=== PATIENT | male | born 1980 | race Caucasian/White ===

== ENCOUNTER 2020-12-13 09:49 | Outpatient (REF) | payer OTHER, SELFPAY ==
--- NOTE | ~2020-12-13 | XR_ITS ---
EXAMINATION: XR WRIST, LEFT CLINICAL INFORMATION: Ganglion left wrist. COMPARISON: None TECHNIQUE: Left wrist is imaged in 4 views. FINDINGS: Symptom marker directed towards the lateral wrist. The bony mineralization appears normal. There is no fracture, dislocation, or destructive process. The ulnar variance is neutral. There is no joint narrowing or erosive change or chondrocalcinosis. No soft tissue mass appreciated on plain film. XR/XR wrist LT min 3V IMPRESSION: Normal left wrist.
== END 2020-12-13 09:50 | disposition home or self-care (01) ==
LOC: HO.XRAY 09:49
PROVIDERS: Visit Provider Family Medicine
DX: M67.432 Ganglion, left wrist (principal)
CPT/HCPCS: 73110

== ENCOUNTER → 2021-05-22 10:36 | Outpatient (BNVA) | payer OTHER, SELFPAY | PROVIDERS: Visit Provider Urology | DX: N41.9 Inflammatory disease of prostate, unspecified (principal) | CPT/HCPCS: 99202 ==

== ENCOUNTER 2025-01-10 10:37 | Outpatient (REF) | payer OTHER, SELFPAY ==
--- NOTE | ~2025-01-10 | XR_ITS ---
EXAMINATION: XR SINUSES CLINICAL INFORMATION: pt w chronic sinusitis symptoms needs facial sinus XR COMPARISON: None available. TECHNIQUE: 4 views of the paranasal sinuses FINDINGS: Paranasal sinuses appear clear without air-fluid levels. No fractures are identified. No radiodense foreign bodies are identified aside from dental changes. XR/XR sinus min 3V IMPRESSION: Unremarkable examination. Electronically signed by: Jasiel Alonzo MD 01/10/2025 11:04 AM EDT
--- OUTSIDE RECORDS SUMMARY | 2025-01-10 09:15 | XMS_ITS | Encounter Summary ---
Author Organization [employer] Address [address] [facility] [address], [place] [address] Care Team Providers Care Envelope Press Operator Name Role Phone Karen Pride MD Primary Care Pro vider Reason for Referral * Consultation (Routine) - Pending Review Specialty Diagnoses / Procedures Referred By Faisal bernal Referred To Contact Gastroenterology Diagnoses Colon cancer screening Karen Pride MD [address] [place] [address] Phone: tel: fax: Referral ID Status Reason Start Date Expiration Date Visits Requested Visits Authorized [id number] Pending Review Specialty Services Required 01/10/2025 01/10/2026 1 1 * Consultation (Routine) - Authorized Specialty Diagnoses / Procedures Referred By Faisal bernal Referred To Contact Nutrition Diagnoses Obesity (BMI 30-39.9) Fatty liver Karen Pride MD [address] [place] [address] Phone: tel: fax: Referral ID Status Reason Start Date Expiration Date Visits Requested Visits Authorized [id number] Authorized Specialty Services Required 01/10/2025 01/10/2026 1 1 Encounter Details Date Type Department Care Team (Late st Contact Info) Description 01/10/2025 9:15 AM EDT Office Visit [facility] [address] [place] [address] Karen Pride MD [address] [place] [phone] Health care maintenance (Primary Dx); Dietary counseling; Exercise counseling; Obesity (BMI 30-39.9); Fatty liver; Anxiety; Colon cancer screening; Recurrent sinusitis; Allergic rhinitis, unspecified seasonality, unspecified trigger; Annual physical exam Social History Tobacco Use Types Packs/Day Years Used Date Smoking Tobacco: Never Smokeless Tobacco: Never Tobacco Cessation:Counseling Given: Not Answered Alcohol Use Standard Drinks/Week Comments Yes 0 (1 standard drink = 0.6 oz pur e alcohol) social Depression Answer Date Recorded Patient Health Questionnaire-9 Score 8 01/10/2025 Patient Health Questionnaire-9 Score 8 01/10/2025 Last PHQ-9: Questionnaire Data Not on file 0 01/10/2025 Housing Stability Answer Date Recorded What is your housing situation today? Not on marvel e 01/10/[address] you li ve. Do you have problems with any of the following? None of the above 01/10/2025 Food Insecurity Answer Date Recorded Within the past 12 months, y ou worried that your food would run out before you got money to buy more: Never True 01/10/2025 Within the past 12 months,th e food you bought just didn't last and you didn't have enough money to get more: Never True Transportation Answer Date Recorded In the past 12 months, has l ack of transportation kept you from medical appts, meetings, work or from getting things needed for daily living? No 01/10/2025 Utilities Answer Date Recorded In the past 12 months, has t he [employer], gas, oil or water company threatened to shut off services in your home? No 01/10/2025 Depression Answer Date Recorded Patient Health Questionnaire-2 Score 1 01/10/2025 Internet Access Answer Date Recorded Internet Access Q1 Yes 01/10/2025 Internet Access Q2 Not on file 01/10/2025 Sex and Gender Information Value Date Recorded Sex Assigned at Male 03/16/2022 10:38 AM EDT Legal Sex Male 10:38 AM EDT Gender Identity Male 03/16/2022 10:38 AM EDT Sexual Orientation Straight 01/10/2025 9: 35 AM EDT documented as of this encounter Last Filed Vital Signs Vital Sign Reading Time Taken Comments Blood Pressure 138/78 01/10/2025 9:21 AM EDT Pulse 60 01/10/2025 9:21 AM EDT Temperature 36.7 C (98 F) 01/10/2025 9:21 AM EDT Respiratory Rate 20 01/10/2025 9:21 AM EDT Oxygen Saturation 98% 01/10/2025 9:21 AM EDT Inhaled Oxygen Concentration - - Weight 93.4 kg (206 lb) 01/10/2025 9:21 AM EDT Height 172.7 cm (5' 8 ) 01/10/2025 9:21 AM EDT Body Mass Index 31.32 01/10/2025 9:21 AM EDT documented in this encounter Functional Status * Over the past 2 weeks, how often have you been bothered by any of the following problems? Question Answer Date of Assessment Author Patient Health Questionnaire -2 Score 1 01/10/2025 10:53 AM EDT Nataliia Sosa MA * Little interest or pleasure in doing things Answer Date of Assessment Author Several days 01/10/2025 10:53 AM EDT Nataliia Sosa MA * Feeling down, depressed, or hopeless Answer Date of Assessment Author Not at all 01/10/2025 10:53 AM PAZT Nataliia Sosa MA * Trouble falling or staying asleep, or sleeping too much Answer Date of Assessment Author Several days 01/10/2025 10:53 AM Nataliia Galaviz MA * Feeling tired or having little energy Answer Date of Assessment Author Several days 01/10/2025 10:53 AM EDT Nataliia Sosa MA * Poor appetite or overeating Answer Date of Assessment Author More than half the days 01/10/2025 10:53 AM PAZT Nataliia Sosa MA * Feeling bad about yourself - or that you are a failure or have let yourself or your family down Answer Date of Assessment Author Several days 01/10/2025 10:53 AM Nataliia Galaviz MA * Trouble concentrating on things, such as reading the newspaper or watching television Answer Date of Assessment Author More than half the days 01/10/2025 10:53 AM Nataliia Galaviz MA * Moving or speaking so slowly that other people could have noticed? Or the opposite - being so fidgety or restless that you have been moving around a lot more than usual. Answer Date of Assessment Author Not at all 01/10/2025 10:53 AM Nataliia Galaviz MA * Thoughts that you would be better off or hurting yourself in some way Answer Date of Assessment Author Not at all 01/10/2025 10:53 AM Nataliia Galaviz MA * Patient Health Questionnaire-9 Score Answer Date of Assessment Author 8 01/10/2025 10:53 AM Nataliia Galaviz MA * How difficult have these problems made it for you to do your work, take care of things at home, or get along with other people? Answer Date of Assessment Author Not difficult at all 01/10/2025 10:53 AM Nataliia Daily MA * Over the last 2 weeks, how often have you been bothered by any of the following problems? Question Answer Date of Assessment Author Feeling nervous, anxious, or on edge 1 01/10/2025 10:54 AM Nataliia Galaviz MA Not being able to stop or co ntrol worrying 1 01/10/2025 10:54 AM Nataliia Galaviz MA Worrying too much about diff erent things 1 01/10/2025 10:54 AM Nataliia Galaviz MA Trouble relaxing 1 01/10/2025 10:54 AM Nataliia Galaviz MA Being so restless that it is hard to sit still 1 01/10/2025 10:54 AM Nataliia Galaviz MA Becoming easily annoyed or irritable 1 01/10/2025 10:54 AM Nataliia Galaviz MA Feeling afraid as if somethi ng awful might happen 1 01/10/2025 10:54 AM Nataliia Galaviz MA GÉNESIS-7 Total Score 7 01/10/2025 10:54 AM EDT Nataliia Sosa MA documented as of this encounter Plan of Treatment Upcoming Encounters Date Type Department Care Team (Late st Contact Info) Description 04/11/2025 9:00 AM EST Office Visit [facility] [address] [place] [phone] Karen Pride MD [address], [place] [phone] Scheduled Orders Name Type Priority Associated Diagnoses Orde r Schedule CBC auto differential Lab Routine Annual physical exam Expected: 01/10/2025 (Approximate), Expires: 01/10/2026 Chlamydia/Trichomonas/Neiss eria gonorrhoeae, PCR, Urine Lab Routine Annual physical exam Ordered: 01/10/2025 Comprehensive Metabolic Panel Lab Routine Annual physical exam Expected: 01/10/2025 (Approximate), Expires: 01/10/2026 Hemoglobin A1c Lab Routine Annual physical exam Expected: 01/10/2025 (Approximate), Expires: 01/10/2026 Hepatitis B Core Antibody, Total Lab Routine Annual physical exam Expected: 01/10/2025 (Approximate), Expires: 01/10/2026 Hepatitis B Surface Antibody, Qualitative Lab Routine Annual physical exam Expected: 01/10/2025 (Approximate), Expires: 01/10/2026 Hepatitis B surface antigen, EIA Lab Routine Annual physical exam Expected: 01/10/2025 (Approximate), Expires: 01/10/2026 Hepatitis C Antibody with Reflex to HCV, RNA, Quantitative, Real-Time PCR Lab Routine Annual physical exam Expected: 01/10/2025 (Approximate), Expires: 01/10/2026 HIV-1/2 Antigen and Antibodies, Fourth Generation, with Reflexes Lab Routine Annual physical exam Expected: 01/10/2025 (Approximate), Expires: 01/10/2026 Lipid Panel, Standard Lab Routine Annual physical exam Expected: 01/10/2025 (Approximate), Expires: 01/10/2026 Syphilis Screen Lab Routine Annual physical exam Expected: 01/10/2025 (Approximate), Expires: 01/10/2026 TSH with Reflex to Free T4 Lab Routine Annual physical exam Expected: 01/10/2025 (Approximate), Expires: 01/10/2026 Vitamin D, 25-Hydroxy, Total, Immunoassay Lab Routine Annual physical exam Expected: 01/10/2025 (Approximate), Expires: 01/10/2026 Scheduled Referrals Name Type Priority Associated Diagnoses Order Schedule Referral to Nutrition Services Outpatient Referral Routine Obesity (BMI 30-39.9) Fatty liver Expected: 01/10/2025 (Approximate), Expires: 01/10/2026 Referral to Gastroenterology Outpatient Referral Routine Colon cancer screening Expected: 01/10/2025 (Approximate), Expires: 01/10/2026 documented as of this encounter Procedures Procedure Name Priority Date/Time Associated Diagnosis Comments XR SINUS 3 VIEWS Routine 01/10/2025 10:0 9 AM EDT Recurrent sinusitis documented in this encounter Results * XR Sinus 3 Views (01/10/2025 10:09 AM EDT) Anatomical Region Laterality Modality Radiographic Edna ging 01/10/2025 10:0 9 AM EDT Narrative 01/10/2025 11:07 [place] [address] XRay Report Signed Patient: Otilio De La Vega MR#: [id number] : 1980 Acct:[id number] Age/Sex: 44 / M ADM Date: 01/10/25 Loc: HO.[facility]X Attending Dr: Karen Chambers MD Ordering Physician: Karen Pride MD Date of Service: 01/10/25 Procedure(s): XR sinus min 3V Accession Number(s): [id number] cc: Karen Pride MD EXAMINATION: XR SINUSES CLINICAL INFORMATION: pt w chronic sinusitis symptoms needs facial sinus XR COMPARISON: None available. TECHNIQUE: 4 views of the paranasal sinuses FINDINGS: Paranasal sinuses appear clear without air-fluid levels. No fractures are identified. No radiodense foreign bodies are identified aside from dental changes. XR/XR sinus min 3V IMPRESSION: Unremarkable examination. Electronically signed by: Jasiel Alonzo MD 01/10/2025 11:04 AM EDT Dictated By: Jasiel Alonzo MD Signed By: <Electronically signed by Jasiel Alnozo MD in OV> 01/10/25 1104 DD/ 1009 TD/TT: 01/10/25 1010 Layout Former: Procedure Note Coleman, Image - 01/10/[address] [address] XRay Report Signed Patient: Otilio De La VegaMR#: [id number] : 1980Acct:[id number] Age/Sex: 44 / MADM Date: 01/10/25 Loc: .[facility]HCX Attending Dr: Karen Chambers MD Ordering Physician: Karen Pride MD Date of Service: 01/10/25 Procedure(s): XR sinus min 3V Accession Number(s): [id number] cc: Karen Pride MD EXAMINATION: XR SINUSES CLINICAL INFORMATION: pt w chronic sinusitis symptoms needs facial sinus XR COMPARISON: None available. TECHNIQUE: 4 views of the paranasal sinuses FINDINGS: Paranasal sinuses appear clear without air-fluid levels. No fractures are identified. No radiodense foreign bodies are identified aside from dental changes. XR/XR sinus min 3V IMPRESSION: Unremarkable examination. Electronically signed by: Jasiel Alonzo MD 01/10/2025 11:04 AM EDT Dictated By: Jasiel Alonzo MD Signed By: <Electronically signed by Jasiel Alonzo MD in OV> 01/10/25 1104 DD/ 1009 TD/TT: 01/10/25 1010 Layout Former: Karen Chambers MD IMG XR PROCEDURES Edited Result - Final documented in this encounter Visit Diagnoses Diagnosis Health care maintenance- Primary Dietary counseling Dietary surveillance and counseling Exercise counseling Obesity (BMI 30-39.9) Fatty liver Other chronic nonalcoholic liver disease Anxiety Anxiety state, unspecified Colon cancer screening Special screening for malignant neoplasms, colon Recurrent sinusitis Unspecified sinusitis (chronic) Allergic rhinitis, unspecified seasonality, unspecified trigger Annual physical exam Routine general medical examination at a health care facility documented in this encounter Additional Health Concerns Assessment Noted Time PHQ-9 Depression Total Score: 8 01/11/20 25 10:53 AM EDT documented as of this encounter Care Teams Envelope Press Operator Relationship Specialty Start Date End Date Karen Pride MD [address] [place] [id number] PCP - General Internal Medicine 01/10/25 documented as of this encounter
--- OUTSIDE RECORDS SUMMARY | 2025-01-10 11:30 | XMS_ITS | Clinical Summary ---
Author Organization [facility] Address [address] [place] [address] Phone Care Team Providers Care Criminology Teacher Name Role Phone Physician, No Pcp Primary Care Provider Unavaila ble Allergies No known active allergies Social History Tobacco Use Types Packs/Day Years Used Date Smoking Tobacco: Never Assessed Sex and Gender Information Value Date Recorded Sex Assigned at Not on file Legal Sex Male 12:37 PM EST Gender Identity Not on file Sexual Orientation Not on file Last Filed Vital Signs Vital Sign Reading Time Taken Comments Blood Pressure 138/78 09/06/2024 12:55 PM EDT Pulse 70 09/06/2024 12:55 PM EDT Temperature 36.7 C (98 F) 09/06/2024 12:55 PM EDT Respiratory Rate 16 09/06/2024 12:55 PM EDT Oxygen Saturation 95% 09/06/2024 12:55 PM EDT Inhaled Oxygen Concentration - - Weight 90.7 kg (200 lb) 09/06/2024 9:25 AM EDT Height 175.3 cm (5' 9 ) 09/06/2024 9:25 AM EDT Body Mass Index 29.53 09/06/2024 9:25 AM EDT Plan of Treatment Health Maintenance Due Date Last Done Comments Hepatitis B Vaccines (1 of 3 - 19+ 3-dose series) 1997 Colorectal Cancer Screening: Colonoscopy 01/10/2024 HIV Screening 01/10/2024 Hepatitis C Screening 01/10/2024 Social Influencers of Health Screening 01/10/2024 COVID-19 Vaccine (3 - 2023-2 5 season) 2024 09/26/2020, 08/29/2020 Depression Screening 05/17/2024 Influenza Vaccine (#1) 2025 04/27/2018 Cholesterol Screening (Lipid Panel) 11/29/2025 11/29/2020 DTaP,Tdap,and Td Vaccines (2 - Td or Tdap) 11/02/2027 11/01/2017 HIB Vaccines Aged Out No longer eligi ble based on patient's age to complete this topic HPV Vaccines Aged Out No longer eligi ble based on patient's age to complete this topic Hepatitis A Vaccines Aged Out No long er eligible based on patient's age to complete this topic IPV Vaccines Aged Out No longer eligi ble based on patient's age to complete this topic MMR Vaccines Aged Out No longer eligi ble based on patient's age to complete this topic Meningococcal ACWY Vaccine Aged Out N o longer eligible based on patient's age to complete this topic Meningococcal B Vaccine Aged Out No l onger eligible based on patient's age to complete this topic Pneumococcal Vaccine: Pediatrics (0 to 5 Years) and At-Risk Patients (6 to 49 Years) Aged Out No longer eligible b ased on patient's age to complete this topic RSV Immunization Patients Under 20 months Aged Out No longer eligible b ased on patient's age to complete this topic Varicella Vaccines Aged Out No longer eligible based on patient's age to complete this topic Insurance [facility] Care Teams Criminology Teacher Relationship Specialty Start Date End Date Physician, No Pcp PCP - General 09/06/24
--- OUTSIDE RECORDS SUMMARY | 2025-01-10 11:30 | XMS_ITS | Clinical Summary ---
Author Organization [employer] Address [address] [facility] [address] [place] [address] Care Team Providers Care Leather Lacer Name Role Phone Karen Pride MD Primary Care Pro vider Allergies No known active allergies Medications * This document contains information received from the source organization and may not represent a complete record from that organization. sodium chloride ([place]) 0.65 % nasal sprayIndication s:Recurrent sinusitis Administer 1 spray into each nostril if needed for congestion. 15 mL 2 5 01/11/20 26 Active fexofenadine ([place]) 180 MG tabletIndicatio ns:Recurrent sinusitis Take 1 tablet (180 mg) by mouth if needed each day (Allergies). 90 tablet 5 04/10/20 25 Active Active Problems Problem Noted Date Diagnosed Date Health care maintenance 01/10/2025 Obesity (BMI 30-39.9) 01/10/2025 Anxiety 01/10/2025 Recurrent sinusitis 01/10/2025 Allergic rhinitis 01/10/2025 Encounters * This document contains information received from the source organization and may not represent a complete record from that organization. Date Type Department Care Team Description 01/10/2025 9:15 AM EDT Office Visit [address] [address] Karen Pride MD Health care maintenance (Primary Dx); Dietary counseling; Exercise counseling; Obesity (BMI 30-39.9); Fatty liver; Anxiety; Colon cancer screening; Recurrent sinusitis; Allergic rhinitis, unspecified seasonality, unspecified trigger; Annual physical exam 01/10/2025 Travel 01/03/2025 Patient Outreach [facility] [address] [place] [address] Karen Pride MD Pre-visit Planning (Pre-visit planning - LVM ) 01/03/2025 Travel from Last 3 Months Immunizations Immunization Administration Dates Next Due Influenza injectable quadrivalent preservative f ree 04/27/2018 Tdap 11/01/2017 Family History Medical History Relation Name Comments bladder ca Father HTN Mother Relation Name Status Comments Father Mother Social History Tobacco Use Types Packs/Day Years [...] the past 12 months, has t he electric, gas, oil or water company threatened to [...] Orientation Straight 01/10/2025 9: 35 AM EDT Last Filed Vital Signs Vital Sign Reading [...] Mass Index 31.32 01/10/2025 9:21 AM EDT Plan of Treatment Upcoming Encounters Date Type Department Care Team (Late st Contact Info) Description 04/11/2025 9:00 AM EST Office Visit [facility] [address] [place], [place] [phone] Karen Pride MD [address] [place], [place] [phone] Health Maintenance Due Date Last Done Comments CT Colonography 1980 Colonoscopy 1978 Colorectal Cancer Screening 1978 FIT DNA/Cologuard 1978 FIT 1978 FOBT 1980 HIV Screening 1980 SDOH Screening 1980 Sigmoidoscopy 1980 Family Planning (PISQ) 1993 Hepatitis C Screening 1996 Hepatitis A Vaccines (1 of 2 - Risk 2-dose series) 1997 Hepatitis B Vaccines (1 of 3 - 19+ 3-dose series) 1997 COVID-19 Vaccine (2023-2 5 season) 2024 09/26/2020, 08/29/2020 Influenza Vaccine (#1) 2025 04/27/2018 Lipid Panel 11/29/2025 11/29/2020 Disability Screening 01/03/2026 01/03/2025 Alcohol/Substance Use Screening 01/10/2026 01/10/2025 Depression Screening 01/10/2026 01/10/2025, 01/10/2025 Tobacco Screening 01/10/2026 01/10/2025 DTaP/Tdap/Td Vaccines (2 - T d or Tdap) 11/02/2027 11/01/2017 Zoster Vaccines (1 of 2) 2028 RSV Patients and Patients Aged 60 years or older (1 - 1-dose 75+ series) 2053 HIB Vaccines Aged Out No longer eligi [...] patient's age to complete this topic Meningococcal Vaccine Aged Out No batsheva sepideh eligible based on patient's age to complete this topic Pneumococcal Vaccine: Pediatrics (0 to 5 Years) and At-Risk Patients (6 to 49) Years Aged Out No longer eligible b ased on patient's age to complete this topic RSV under 20 months Aged Out No longe r eligible based on patient's age to complete this topic Rotavirus Vaccines Aged Out No longer eligible based on patient's age to complete this topic Procedures Procedure Name Priority Date/Time Associated Diagnosis Comments XR SINUS 3 VIEWS Routine 01/10/2025 10:0 9 AM EDT Recurrent sinusitis LIPID PANEL, STANDARD Routine 11/29/2020 8:17 AM EDT from Last 3 Months or Most Recently Relevant to Health Maintenance Results * XR Sinus 3 Views (01/10/2025 10:09 AM EDT) Anatomical Region Laterality Modality Radiographic Edna ging 01/10/2025 10:0 9 AM EDT Narrative 01/10/2025 11:07 AM EDT [address] [address] XRay Report Signed Patient: Otilio De La Vega MR#: [id number] : 1980 Acct:[id number] Age/Sex: 44 / M ADM Date: 01/10/25 [facility]: Karen Chambers MD Ordering Physician: Karen Pride MD Date of Service: 01/10/25 Procedure(s): XR sinus min 3V Accession Number(s): [id number] cc: Karen Pride MD EXAMINATION: XR SINUSES [...] Jasiel Alonzo MD 01/10/2025 11:04 AM EDT RP Dictated By: Jasiel Alonzo MD Signed By: <Electronically signed by Jasiel Alonzo MD in OV> 01/10/25 1104 DD/ 1009 TD/TT: 01/10/25 1010 Cryptologic Support Specialist: Procedure Note Donotuseinterpreter, Image - 01/10/[address] [address] XRay Report Signed Patient: Otilio De La VegaMR#: [id number] : 1980Acct:[id number] Age/Sex: 44 / MADM Date: 01/10/25 Loc: HO.[facility]HCX Attending Dr: Karen Chambers MD Ordering Physician: Karen Pride MD Date of Service: 01/10/25 Procedure(s): XR sinus min 3V Accession Number(s): [id number] cc: Karen Pride MD EXAMINATION: XR SINUSES [...] Jasiel Alonzo MD 01/10/2025 11:04 AM EDT RP Dictated By: Jasiel Alonzo MD Signed By: <Electronically signed by Jasiel Alonzo MD in OV> 01/10/25 1104 DD/ 1009 TD/TT: 01/10/25 1010 Cryptologic Support Specialist: us Karen Chambers MD IMG XR PROCEDURES Edited Result - Final * (ABNORMAL) LIPID PANEL, STANDARD (11/29/2020 8:17 AM EDT) Chol/HDLC Ratio 5.6(H) <5.0 (calc) [facility] Cholesterol, Total 185 <200 mg/dL [facility] HDL Cholesterol 33(L) > OR = 40 mg/dL [facility] LDL Cholesterol 122(H) mg/dL (calc) [facility] Comment: Reference range: <100 Desirable range <100 mg/dL for primary prevention; <70 mg/dL for patients with CHD or diabetic patients with > or = 2 CHD risk factors. LDL-C is now calculated using the Wilbur-Morales calculation, which is a validated novel method providing better accuracy than the Friedewald equation in the estimation of LDL-C. Wilbur SS et al. FABIENNE. 2013;310(19): 1254-0928 (http://education.[employer].Yoono/faq/LYU280) Non-HDL Cholesterol 152(H) <130 mg/dL (calc) [facility] Comment: For patients with diabetes plus 1 major ASCVD risk factor, treating to a non-HDL-C goal of <100 mg/dL (LDL-C of <70 mg/dL) is considered a therapeutic option. Triglycerides 182(H) <150 mg/dL [facility] 11/29/2020 8:17 AM EDT us Adair Galvin MD LAB BLOOD ORDERABLES Final Result [facility] [address] from Last 3 Months or Most Recently Relevant to Health Maintenance Insurance 2 Care Teams Leather Lacer Relationship Specialty Start Date End Date Karen Pride MD [address] [place] [phone] PCP - General Internal Medicine 01/10/25
--- OUTSIDE RECORDS SUMMARY | 2025-01-10 11:30 | XMS_ITS | Encounter Summary ---
Author Organization [employer] Address [address] [place] [address] Care Team Providers Care Airborne Electronics Analyst Name Role Phone Karen Pride MD Primary Care Pro vider Reason for Visit * Reason Onset Date Comments new patient 08/03/2023 Encounter Details Date Type Department Care Team (Late st Contact Info) Description 08/03/2023 Telephone [facility] MEDICINE [address] [place] [address] [phone] Adair Wild MD [address] [place] [phone] new patient Social History Tobacco Use Types Packs/Day Years Used Date Smoking Tobacco: Never Assessed Sex and Gender Information Value Date Recorded Sex Assigned at Male 03/16/2022 10:38 AM EDT Legal Sex Male 10:38 AM EDT Gender Identity Male 03/16/2022 10:38 AM EDT Sexual Orientation Straight 01/10/2025 9: 35 AM EDT documented as of this encounter Miscellaneous Notes * Telephone Encounter - Yanelis Menendez - 08/03/2023 11:56 AM EDT Tc from pt requesting new pt appt, address and phone confirmed. [facility] [phone] Pt don't know if is bronze, silver or gold. documented in this encounter Plan of Treatment Upcoming Encounters Date Type Department Care Team (Late st Contact Info) Description 04/11/2025 9:00 AM EST Office Visit [facility] MEDICINE [address] [place] [address] [phone] Karen Pride MD [address] [place], [place] [phone] documented as of this encounter Visit Diagnoses Not on filedocumented in this encounter Care Teams Airborne Electronics Analyst Relationship Specialty Start Date End Date Karen Pride MD [address] [place], [place] [phone] PCP - General Internal Medicine 01/10/25 documented as of this encounter
--- OUTSIDE RECORDS SUMMARY | 2025-01-10 11:30 | XMS_ITS | Encounter Summary ---
Author Organization [employer] Address [address] [place] [address] Care Team Providers Care Reporter Anchor Name Role Phone Karen Pride MD Primary Care Pro vider Encounter Details Date Type Department Care Team (Latest Contact Info) Description 01/10/2025 Travel Social History Tobacco Use Types Packs/Day Years Used Date Smoking Tobacco: Never Smokeless Tobacco: Never Alcohol Use Standard Drinks/Week Comments Yes 0 [...] AM EDT documented as of this encounter Functional Status * Over the past 2 weeks, how often have you been bothered by any of the following problems? Question Answer Date of Assessment Author Patient Health Questionnaire -2 Score 1 01/10/2025 10:53 AM PAZT Nataliia Sosa [place] * Little interest or pleasure in doing things Answer Date of Assessment Author Several days 01/10/2025 10:53 AM Nataliia Galaviz MA * Feeling down, depressed, or hopeless Answer Date of Assessment Author Not at all 01/10/2025 10:53 AM Nataliia Galaviz MA * Trouble falling or staying asleep, or sleeping too much Answer Date of Assessment Author Several days 01/10/2025 10:53 AM Nataliia Galaviz MA * Feeling tired or having little energy Answer Date of Assessment Author Several days 01/10/2025 10:53 AM Nataliia Galaviz MA * Poor appetite or overeating Answer Date of Assessment Author More than half the days 01/10/2025 10:53 AM Nataliia Galaviz MA * Feeling bad about yourself - [...] GÉNESIS-7 Total Score 7 01/10/2025 10:54 AM Nataliia Galaviz MA documented as of this encounter Plan of Treatment Upcoming Encounters Date Type Department Care Team (Late st Contact Info) Description 04/11/2025 9:00 AM EST Office Visit [facility] MEDICINE [address] [place], [place] [phone] Karen Pride MD [address] [place] [address] documented as of this encounter Visit Diagnoses Not on filedocumented in this encounter Additional Health Concerns Assessment Noted Time PHQ-9 Depression Total Score: 8 01/11/20 25 10:53 AM EDT documented as of this encounter Care Teams Reporter Anchor Relationship Specialty Start Date End Date Karen Pride MD [address] [place] [address] PCP - General Internal Medicine 01/10/25 documented as of this encounter
== END 2025-01-10 10:38 | disposition home or self-care (01) ==
LOC: HO.HHCX 10:37
PROVIDERS: PCP Student in an Organized Health Care Education/Training Program; Visit Provider Student in an Organized Health Care Education/Training Program
DX: J32.9 Chronic sinusitis, unspecified (principal)
CPT/HCPCS: 70220

== ENCOUNTER → 2025-01-10 10:46 | Outpatient (BNV) | payer OTHER, SELFPAY | PROVIDERS: PCP Student in an Organized Health Care Education/Training Program; Visit Provider Radiology Diagnostic Radiology | DX: J32.9 Chronic sinusitis, unspecified (principal) | CPT/HCPCS: 70220 ==

== ENCOUNTER 2025-04-05 08:29 | Outpatient (REF) | payer OTHER, SELFPAY ==
[2025-04-05 11:14] LABS: MANUAL DIFF FLAG NO
[2025-04-05 11:21] LABS: Hematocrit 44.6 % (42.0-52.0); Hemoglobin 14.8 g/dl (14.0-18.0); Imm Gran Abs Auto 0.02 X10*3/uL (0.00-0.03); Imm Gran Pct Auto 0.3 % (0.0-0.4); Lymphocytes Absolute Auto 1.5 X10*3/uL (1.2-4.9); Mean Corpuscular HGB Conc 33.2 g/dl (31.0-36.0); Mean Corpuscular Hemoglobin 29.7 pg (27.0-33.0); Mean Corpuscular Volume 89.6 fL (80.0-98.0); NRBC Abs Auto 0.000 X10*3/uL (0.0-0.012); NRBC Pct Auto 0.0 /100WBC (0.0-0.2); Platelet Count 254 X10*3/uL (160-400); Red Blood Count 4.98 X10*6/uL (4.60-5.80); White Blood Count 5.9 X10*3/uL (4.8-10.8)
[2025-04-05 12:20] LABS: HBS Num1 0.01 mIU/mL (0-7.99); HBc Num1 0.12 S/CO (0.00-0.79); HBsAGNum1 0.54 S/CO (0.00-0.99); HIV Num 1 0.06 S/CO (0.00-0.99); Hepatitis B Surface Antigen Negative (Negative); ~HepC Num1 0.19 S/CO (0.00-0.79); ~Hepatitis B Surface Antibody NONREACTIVE (Nonreactive); ~Hepatitis C Antibody Nonreactive (Nonreactive)
[2025-04-05 12:26] LABS: Syphilis Screen Nonreactive (Nonreactive)
[2025-04-05 12:29] LABS: Alanine Aminotransferase 92 U/L (0-40); Albumin Level 4.9 g/dL (3.5-5.0); Alkaline Phosphatase 57 U/L (39-117); Anion Gap 11 (12-20); Aspartate Amino Transferase 58 U/L (5-37); Blood Urea Nitrogen 12 mg/dL (9-16); Calcium 9.2 mg/dL (8.4-10.2); Carbon Dioxide 26 mmol/L (22-29); Chloride 108 mmol/L (96-108); Cholesterol 163 mg/dL (<200); Estimated Glomerular Filt Rate > 60; HDL Cholesterol 29 mg/dL (>40); Potassium 3.9 mmol/L (3.3-5.1); Sodium 141 mmol/L (135-145); Total Protein 7.4 g/dL (6.5-8.0); Triglycerides 112 mg/dL (<150)
[2025-04-05 13:18] LABS: CT PCR Urine NOT DETECTED (Not Detect.); NG PCR Urine NOT DETECTED (Not Detect.)
== END 2025-04-05 08:30 | disposition home or self-care (01) ==
LOC: HO.HHCL 08:29
PROVIDERS: PCP Student in an Organized Health Care Education/Training Program; Visit Provider Student in an Organized Health Care Education/Training Program
DX: Z00.00 Encounter for general adult medical examination without abnormal findings (principal); Z11.59 Encounter for screening for other viral diseases; Z11.4 Encounter for screening for human immunodeficiency virus [HIV]; Z20.2 Contact with and (suspected) exposure to infections with a predominantly sexual mode of transmission
CPT/HCPCS: 80053; 80061; 82306; 83036; 84443; 85025; 86704; 86706; 86780; 86803; 87340; 87389; 87491; 87591